=== PATIENT | female | born 1945 | race Caucasian/White ===

== ENCOUNTER 2019-02-19 16:00 | Observation (INO) | payer OTHER ==
--- NOTE | 2019-02-19 16:38 | PDOC ---
Documentation entered by Weston Chao SCRIBE, acting as scribe for Yamileth Munoz MD. Yamileth Munoz MD: This documentation has been prepared by the Jeremie malcolm Daniel, SCRIBE, under my direction and personally reviewed by me in its entirety. I confirm that the documentation accurately reflects all work, treatment, procedures, and medical decision making performed by me. History of Present Illness - General Chief Complaint: Rectal Bleed Stated Complaint: RECTAL BLEED History Source: Patient Exam Limitations: No Limitations - History of Present Illness Initial Comments: 02/19/19 16:32 The patient is a 73 year old female with a past medical history of vertigo and cardiac stents (3 years) here today for evaluation of bloody stool. The patient reports that she began noticed bright red blood yesterday when having bowel movements which she reports never happened before. She states that she only has blood when she she is having a bowel movement and notes that her stools are loose. Patient was seen by Dr. Connors who told her to come to the ER to be admitted and that she would get a colonoscopy tomorrow. She notes that she feels like lightheaded but attributes this to her vertigo. Patient denies headache. Denies fever, chills. Denies chest pain, shortness of breath. Denies nausea, vomiting, diarrhea, abdominal pain. Allergies: PCP: Dr. Tapia GI: Ed Connors Past History - Past Medical History Allergies/Adverse Reactions: Allergies Allergy/AdvReac Type Severity Reaction Status Date / Time Penicillins Allergy Severe Difficulty Verified 02/19/19 16:01 Breathing Home Medications: Ambulatory Orders Aspirin [ASA -] 81 mg PO DAILY 02/19/19 Clopidogrel Bisulfate [Plavix] 75 mg PO DAILY 02/19/19 Losartan/Hydrochlorothiazide [Hyzaar 50-12.5 Tablet] 1 each PO DAILY 02/19/19 Review of Systems - Review of Systems Able to Perform ROS?: Yes Comments:: 02/19/19 16:32 GENERAL/CONSTITUTIONAL: No fever or chills. No weakness. HEAD, EYES, EARS, NOSE AND THROAT: No change in vision. No ear pain or discharge. No sore throat. CARDIOVASCULAR: No chest pain or shortness of breath. RESPIRATORY: No cough, wheezing, or hemoptysis. GASTROINTESTINAL: +bloody bowel movements. No nausea, vomiting, diarrhea or constipation. GENITOURINARY: No dysuria, frequency, or change in urination. MUSCULOSKELETAL: No joint or muscle swelling or pain. No neck or back pain. SKIN: No rash NEUROLOGIC: No headache, vertigo, loss of consciousness, or change in strength/ sensation. ENDOCRINE: No increased thirst. No abnormal weight change. HEMATOLOGIC/LYMPHATIC: No anemia, easy bleeding, or history of blood clots. ALLERGIC/IMMUNOLOGIC: No hives or skin allergy. *Physical Exam - Physical Exam Comments: 02/19/19 16:33 GENERAL: Awake, alert, and fully oriented, in no acute distress HEAD: No signs of trauma EYES: PERRLA, EOMI, sclera anicteric, conjunctiva clear ENT: Auricles normal inspection, hearing grossly normal, nares patent. Moist mucosa NECK: Normal ROM, supple, no lymphadenopathy, JVD, or masses LUNGS: Breath sounds equal, clear to auscultation bilaterally. No wheezes, and no crackles HEART: Regular rate and rhythm, normal S1 and S2, no murmurs, rubs or gallops ABDOMEN: Soft, nontender, normoactive bowel sounds. No guarding, no rebound. No masses RECTAL: +mucous with blood in rectal vault. EXTREMITIES: Normal range of motion, no edema. No erythema or tenderness. DP/PT pulses 2+ and symmetric. Warm and well perfused. NEUROLOGICAL: Moves all extremities. Normal speech, normal gait SKIN: Warm and dry. Heart Score/ECG Review #1 General ECG Interpretation: Sinus Rhythm, Normal Rate, Normal Intervals, No acute ischemic changes (TWI AVL, no st elevation or depression left axis) Compared to previous ECG there are: Previous ECG unavail ED Treatment Course - LABORATORY CBC & Chemistry Diagram: 02/19/19 17:29 02/19/19 17:29 Medical Decision Making - Medical Decision Making 02/19/19 16:34 Dr. Connors paged at 4:29 PM, awaiting call back. 02/19/19 16:43 d/w dr connors, would like pt to get clears until midnight with go lytely prep. d/ w dr elam awaiting labs, and admission *DC/Admit/Observation/Transfer Diagnosis at time of Disposition: GI bleed - Discharge Dispostion Decision to Admit order: Yes - Referrals - Patient Instructions - Post Discharge Activity
[2019-02-19 16:45] VITALS: BMI 30.2
[2019-02-19] MEDS ORDERED: PEG 3350/NA SULF BICARB CL/KCL 4000 ML SOLN.RECON PO ONE (17:21)
[2019-02-19] MEDS ORDERED: SODIUM CHLORIDE 0.9% 1000 ML INFUS.BAG IV ONE (17:22)
[2019-02-19 17:40] LABS: BASO % 0.7 % (0-2.0); EOS % 0.6 % (0-4.5); HEMATOCRIT 40.2 % (32.4-45.2); LYMPH % 16.9 % (8-40); MCH 26.1 pg (25.7-33.7); MCHC 32.4 g/dl (32.0-36.0); MEAN CELL VOLUME 80.6 fl (80-96); MEAN PLT VOLUME 8.7 fl (7.5-11.1); MONO % 8.6 % (3.8-10.2); NEUT % 73.2 % (42.8-82.8); PLATELET COUNT 239 K/MM3 (134-434); RBC 4.98 M/mm3 (3.60-5.2); RDW 14.5 % (11.6-15.6); WHITE BLOOD COUNT 6.3 K/mm3 (4.0-10.8)
[2019-02-19 17:52] LABS: ACTIVATED PTT 27.8 SECONDS (25.2-36.5)
[2019-02-19 17:54] LABS: ALBUMIN 3.8 g/dl (3.4-5.0); BILIRUBIN,TOTAL 0.5 mg/dl (0.2-1); CALCIUM 9.7 mg/dl (8.5-10); CREATININE 0.8 mg/dl (0.55-1.3); POTASSIUM 3.8 mmol/L (3.5-5.1)
[2019-02-19 17:57] LABS: INR 1.27 (0.82-1.09); PROTHROMBIN TIME (PATIENT) 14.1 SEC (10.2-13.0)
--- NOTE | 2019-02-19 18:52 | HP ---
CHIEF COMPLAINT: Bloody stools PCP: Dr. Gamble Cardiology: Domenica Beyer GI: Dr. Kothari HISTORY OF PRESENT ILLNESS: 73 year-old female with a PMH significant for HTN, and CAD s/p stent on ASA and Plavix, current every day smoker. Patient presented to ED for evaluation of blood stool x 3 episodes. Yesterday patient had a loose bowel movement, brown- colored semi-formed stool, and she noticed blood in the toilet. It was not bright, more the color of "velvet cake." She had a second similar movement later in the day and again this morning. She went to see Dr. Kothari who referred her to the ED. Patient also complains of fatigue and lightheadedness. She denies abdominal pain. She denies dysuria, frequency, urgency, hematuria. She denies nausea, vomiting. She denies any previous episodes of rectal or GI bleeding. Last colonoscopy was about 8 years ago, a few polyps were removed. ER course was notable for: (1) Stool occult positive (2) Hgb 13.0 Recent Travel: [place], [place] PAST MEDICAL HISTORY: Hypertension Coronary artery disease Vertigo PAST SURGICAL HISTORY: Cardiac stent(s) Social History: Smoking: current every day Alcohol: no Drugs: no Family History: mother 67 breast cancer; father 62 liver cirrhosis; 1 brother alive CAD w/stents; 2 brothers a&w; 2 children a&w Allergies Penicillins Allergy (Severe, Verified 02/19/19 16:01) Difficulty Breathing HOME MEDICATIONS: Home Medications Medication Instructions Recorded Aspirin [ASA -] 81 mg PO DAILY 02/19/19 Clopidogrel Bisulfate [Plavix] 75 mg PO DAILY 02/19/19 Losartan/Hydrochlorothiazide 1 each PO DAILY 02/19/19 [Hyzaar 50-12.5 Tablet] REVIEW OF SYSTEMS CONSTITUTIONAL: +fatigue Absent: fever, chills, diaphoresis, generalized weakness, malaise, loss of appetite, weight change HEENT: Absent: rhinorrhea, nasal congestion, throat pain, throat swelling, difficulty swallowing, mouth swelling, ear pain, eye pain, visual changes CARDIOVASCULAR: Absent: chest pain, syncope, palpitations, irregular heart rate, lightheadedness , peripheral edema RESPIRATORY: Absent: cough, shortness of breath, dyspnea with exertion, orthopnea, wheezing, stridor, hemoptysis GASTROINTESTINAL: +rectal bleeding Absent: abdominal pain, abdominal distension, nausea, vomiting, diarrhea, constipation, melena, hematochezia GENITOURINARY: Absent: dysuria, frequency, urgency, hesitancy, hematuria, flank pain, genital pain MUSCULOSKELETAL: Absent: myalgia, arthralgia, joint swelling, back pain, neck pain SKIN: Absent: rash, itching, pallor HEMATOLOGIC/IMMUNOLOGIC: Absent: easy bleeding, easy bruising, lymphadenopathy, frequent infections ENDOCRINE: Absent: unexplained weight gain, unexplained weight loss, heat intolerance, cold intolerance NEUROLOGIC: Absent: headache, focal weakness or paresthesias, dizziness, unsteady gait, seizure, mental status changes, bladder or bowel incontinence PSYCHIATRIC: Absent: anxiety, depression, suicidal or homicidal ideation, hallucinations. PHYSICAL EXAMINATION Vital Signs - 24 hr 02/19/19 02/19/19 16:01 18:04 Temperature 99.5 F Pulse Rate 73 Pulse Rate [ 74 Right] Respiratory 20 20 Rate Blood Pressure 150/75 Blood Pressure 162/84 [Left Arm] O2 Sat by Pulse 96 97 Oximetry (%) GENERAL: Awake, alert, and fully oriented, in no acute distress. HEAD: Normal with no signs of trauma. EYES: Pupils equal, round and reactive to light, extraocular movements intact, sclera anicteric, conjunctiva clear. No lid lag. EARS, NOSE, THROAT: Ears normal, nares patent, oropharynx clear without exudates. Moist mucous membranes. NECK: Normal range of motion, supple without lymphadenopathy, JVD, or masses. LUNGS: Breath sounds equal, clear to auscultation bilaterally. No wheezes, and no crackles. No accessory muscle use. HEART: Regular rate and rhythm, normal S1 and S2 without murmur, rub or gallop. ABDOMEN: Soft, +RLQ tenderness, bowel sounds only in the RLQ; no guarding, no rebound tenderness UPPER EXTREMITIES: 2+ pulses, warm, well-perfused. No cyanosis. No clubbing. No peripheral edema. LOWER EXTREMITIES: 2+ pulses, warm, well-perfused. No calf tenderness. No peripheral edema. NEUROLOGICAL: Cranial nerves II-XII intact. Normal speech. Laboratory Results - last 24 hr 02/19/19 02/19/19 02/19/19 16:16 17:29 17:29 WBC 6.3 RBC 4.98 Hgb 13.0 Hct 40.2 MCV 80.6 MCH 26.1 MCHC 32.4 RDW 14.5 Plt Count 239 MPV 8.7 Absolute Neuts (auto) 4.7 Neutrophils % 73.2 Lymphocytes % 16.9 Monocytes % 8.6 Eosinophils % 0.6 Basophils % 0.7 PT with INR 14.1 H INR 1.27 H PTT (Actin FS) 27.8 Sodium Potassium Chloride Carbon Dioxide Anion Gap BUN Creatinine Est GFR (CKD-EPI)AfAm Est GFR (CKD-EPI)NonAf Random Glucose Calcium Total Bilirubin AST ALT Alkaline Phosphatase Total Protein Albumin Urine Color Urine Appearance Urine pH Urine Protein Urine Glucose (UA) Urine Ketones Urine Blood Urine Nitrite Urine Bilirubin Urine Urobilinogen Ur Leukocyte Esterase Stool Occult Blood Positive 02/19/19 02/19/19 17:29 17:53 WBC RBC Hgb Hct MCV MCH MCHC RDW Plt Count MPV Absolute Neuts (auto) Neutrophils % Lymphocytes % Monocytes % Eosinophils % Basophils % PT with INR INR PTT (Actin FS) Sodium 136 Potassium 3.8 Chloride 102 Carbon Dioxide 26 Anion Gap 8 BUN 15 Creatinine 0.8 Est GFR (CKD-EPI)AfAm 84.18 Est GFR (CKD-EPI)NonAf 72.63 Random Glucose 89 Calcium 9.7 Total Bilirubin 0.5 AST 16 ALT 14 Alkaline Phosphatase 88 Total Protein 7.0 Albumin 3.8 Urine Color Yellow Urine Appearance Clear Urine pH 5.0 Urine Protein Negative Urine Glucose (UA) Negative Urine Ketones Negative Urine Blood Trace-intact Urine Nitrite Positive H Urine Bilirubin Negative Urine Urobilinogen 0.2 Ur Leukocyte Esterase 1+ Stool Occult Blood ASSESSMENT/PLAN 73 year-old female with a PMH significant for HTN, and CAD s/p stent on ASA and Plavix, admitted for lower GI bleed. Lower GI bleed --RLQ tenderness on exam; no fever, no leukocytosis, no nausea, no vomiting --occult stool positive --h/h stable --type and screen done --IV fluids --protonix --cbc q4h --Go-Lytely tonight --plan is for colonoscopy tomorrow with Dr. Kothari Coronary artery disease s/p stent x 3 years ago --hold ASA and Plavix --will reach out to teacher [employer] Dr. Tapia about anti-platelet therapy going forward Hypertension --continue losartan/HCTZ FEN Fluids: NS@125mL/hr Electrolytes: replete as indicated Nutrition: NPO after midnight DVT prophylaxis: SCDs, oob, ambulation Dispo: continues to require observation. Full code. Visit type - Emergency Visit Emergency Visit: Yes ED Registration Date: 02/19/19 Care time: The patient presented to the Emergency Department on the above date and was hospitalized for further evaluation of their emergent condition. - New Patient This patient is new to me today: Yes Date on this admission: 02/19/19 - Critical Care Critical Care patient: No
[2019-02-19] MEDS ORDERED: SODIUM CHLORIDE 1,000 ML IV SCH (20:00)
[2019-02-19] MEDS: PANTOPRAZOLE SODIUM 40 MG VIAL IVPUSH SCH (20:16)
[2019-02-19] MEDS ORDERED: INSULIN SLIDING SCALE (NOVOLOG) 1 VIAL SQ SCH (22:00)
[2019-02-19 22:07] LABS: EPITHELIAL CELLS FEW /hpf
[2019-02-20 08:47] LABS: ALBUMIN 3.2 g/dl (3.4-5.0); BILIRUBIN,TOTAL 0.7 mg/dl (0.2-1); CALCIUM 9.1 mg/dl (8.5-10); CREATININE 0.8 mg/dl (0.55-1.3); MAGNESIUM 1.6 mg/dL (1.8-2.4); POTASSIUM 3.8 mmol/L (3.5-5.1); TOT PROT 5.8 g/dl (6.4-8.2)
[2019-02-20] MEDS: PANTOPRAZOLE SODIUM 40 MG VIAL IVPUSH SCH (09:20)
--- NOTE | 2019-02-20 09:34 | PN ---
Progress Note (short form) - Note Progress Note: Patient seen and consult dictated. For colonoscopy this am with recommendations to follow.
[2019-02-20] MEDS ORDERED: LOSARTAN 50MG/HCTZ 12.5MG 1 TAB (FP) PO SCH (10:00)
--- NOTE | 2019-02-20 10:04 | PN ---
Progress Note (short form) - Note Progress Note: Colonoscopy performed to cecum with report in chart. No bleeding seen. +sigmoid diverticulosis ?etiology of recent bleed? Rec: advance diet d/c home when stable hold ASA, Plavix for 1 week then ?restart if no further bleeding
--- NOTE | 2019-02-20 10:28 | CONS ---
DATE OF CONSULTATION: 02/20/2019 REASON FOR CONSULTATION: I was asked to evaluate this 73-year-old female admitted with lower GI bleeding. HISTORY OF PRESENT ILLNESS: The patient has a history of coronary artery disease, hypertension, and history of colonic polyps in the past. She was seen by me in the office yesterday with a 1-day history of several episodes of dark red blood, had mixed with the stool. The patient denied any associated fever, chills, pain, or cramps. The patient had been on Plavix and aspirin and was sent to the emergency room for evaluation and admission. In the emergency room, she was noted to have a normal white count of 6.3, hemoglobin 13, with hematocrit of 40.2, and an INR of 1.27. Her chemistries were unremarkable. The patient was admitted to the hospital and has remained relatively stable. PHYSICAL EXAMINATION: General: She is a well-developed, well-nourished female. HEENT: [place] conjunctiva. Lungs: Clear. Cardiac: Regular rate and rhythm. Abdomen: Soft. Normoactive bowel sounds and slight discomfort in the right lower quadrant. LABORATORY TESTS: As above. IMPRESSION: Patient is a 73-year-old female admitted with probable lower gastrointestinal bleed. On aspirin and Plavix. Differential diagnosis would include ischemia, arteriovenous malformations, polyps, colitis, and less likely a neoplasm. Patient does have a history of colonic polyps which could also cause bleeding. Will arrange for a colonoscopy with recommendations to follow. ALBERTINA COHEN M.D. [id number]
[2019-02-20 11:37] VITALS: BP 136/61; PULSE 67; TEMP 98.9
[2019-02-20] MEDS ORDERED: MAGNESIUM OXIDE 400 MG TABLET (FP) PO ONE (12:00)
--- NOTE | 2019-02-20 12:13 | DS ---
Physical Exam: SUBJECTIVE: Patient seen and examined OBJECTIVE: Vital Signs Period Temp Pulse Resp BP Sys/Hein Pulse Ox Last 24 Hr 98 F-99.5 F 64-74 17-20 132-162/52-84 94-97 PHYSICAL EXAM GENERAL: The patient is awake, alert, and fully oriented, in no acute distress. HEAD: Normal with no signs of trauma. EYES: PERRL, extraocular movements intact, sclera anicteric, conjunctiva clear. ENT: Ears normal, nares patent, oropharynx clear without exudates, moist mucous membranes. NECK: Trachea midline, full range of motion, supple. LUNGS: Breath sounds equal, clear to auscultation bilaterally, no wheezes, no crackles, no accessory muscle use. HEART: Regular rate and rhythm, S1, S2 without murmur, rub or gallop. ABDOMEN: Soft, nontender, nondistended, normoactive bowel sounds, no guarding, no rebound, no hepatosplenomegaly, no masses. EXTREMITIES: 2+ pulses, warm, well-perfused, no edema. NEUROLOGICAL: Cranial nerves II through XII grossly intact. Normal speech, gait not observed. PSYCH: Normal mood, normal affect. SKIN: Warm, dry, normal turgor, no rashes or lesions noted. LABS Laboratory Results - last 24 hr 02/19/19 02/19/19 02/19/19 07:10 16:16 17:29 WBC 6.3 RBC 4.98 Hgb 13.0 Hct 40.2 MCV 80.6 MCH 26.1 MCHC 32.4 RDW 14.5 Plt Count 239 MPV 8.7 Absolute Neuts (auto) 4.7 Neutrophils % 73.2 Lymphocytes % 16.9 Monocytes % 8.6 Eosinophils % 0.6 Basophils % 0.7 PT with INR INR PTT (Actin FS) Sodium Potassium Chloride Carbon Dioxide Anion Gap BUN Creatinine Est GFR (CKD-EPI)AfAm Est GFR (CKD-EPI)NonAf Random Glucose Calcium Magnesium Total Bilirubin AST ALT Alkaline Phosphatase Total Protein Albumin Urine Color Urine Appearance Urine pH Urine Protein Urine Glucose (UA) Urine Ketones Urine Blood Urine Nitrite Urine Bilirubin Urine Urobilinogen Ur Leukocyte Esterase Urine RBC Urine WBC Ur Transition Epith Cell Urine Bacteria Stool Occult Blood Positive Blood Type A POSITIVE Antibody Screen 02/19/19 02/19/19 02/19/19 17:29 17:29 17:29 WBC RBC Hgb Hct MCV MCH MCHC RDW Plt Count MPV Absolute Neuts (auto) Neutrophils % Lymphocytes % Monocytes % Eosinophils % Basophils % PT with INR 14.1 H INR 1.27 H PTT (Actin FS) 27.8 Sodium 136 Potassium 3.8 Chloride 102 Carbon Dioxide 26 Anion Gap 8 BUN 15 Creatinine 0.8 Est GFR (CKD-EPI)AfAm 84.18 Est GFR (CKD-EPI)NonAf 72.63 Random Glucose 89 Calcium 9.7 Magnesium Total Bilirubin 0.5 AST 16 ALT 14 Alkaline Phosphatase 88 Total Protein 7.0 Albumin 3.8 Urine Color Urine Appearance Urine pH Urine Protein Urine Glucose (UA) Urine Ketones Urine Blood Urine Nitrite Urine Bilirubin Urine Urobilinogen Ur Leukocyte Esterase Urine RBC Urine WBC Ur Transition Epith Cell Urine Bacteria Stool Occult Blood Blood Type A POSITIVE Antibody Screen Negative 02/19/19 02/20/19 17:53 07:10 WBC RBC Hgb Hct MCV MCH MCHC RDW Plt Count MPV Absolute Neuts (auto) Neutrophils % Lymphocytes % Monocytes % Eosinophils % Basophils % PT with INR INR PTT (Actin FS) Sodium 140 Potassium 3.8 Chloride 106 Carbon Dioxide 26 Anion Gap 8 BUN 11 Creatinine 0.8 Est GFR (CKD-EPI)AfAm 84.18 Est GFR (CKD-EPI)NonAf 72.63 Random Glucose 89 Calcium 9.1 Magnesium 1.6 L Total Bilirubin 0.7 AST 14 L ALT 13 Alkaline Phosphatase 77 D Total Protein 5.8 L Albumin 3.2 L Urine Color Yellow Urine Appearance Clear Urine pH 5.0 Urine Protein Negative Urine Glucose (UA) Negative Urine Ketones Negative Urine Blood Trace-intact Urine Nitrite Positive H Urine Bilirubin Negative Urine Urobilinogen 0.2 Ur Leukocyte Esterase 1+ Urine RBC 2-5 Urine WBC 20-30 Ur Transition Epith Cell Few Urine Bacteria Few Stool Occult Blood Blood Type Antibody Screen HOSPITAL COURSE: Date of Admission:02/19/19 Date of Discharge: 02/20/19 Pre hospital course 73 year-old female with a PMH significant for HTN, CAD s/p stent on ASA and Plavix, current every day smoker. Patient presented to ED for evaluation of blood stool x 3 episodes. Yesterday patient had a loose bowel movement, brown- colored semi-formed stool, and she noticed blood in the toilet. It was not bright, more the color of "velvet cake." She had a second similar movement later in the day and again this morning. She went to see Dr. Kothari who referred her to the ED. Patient also complains of fatigue and lightheadedness. She denies abdominal pain. She denies dysuria, frequency, urgency, hematuria. She denies nausea, vomiting. She denies any previous episodes of rectal or GI bleeding. Last colonoscopy was about 8 years ago, a few polyps were removed. ER course (1) Stool occult positive (2) Hgb 13.0 Subsequent hospital course 73 year-old female with a PMH significant for HTN, and CAD s/p stent on ASA and Plavix, admitted for lower GI bleed. Lower GI bleed --02/[address] Kothari: no bleeding seen; +sigmoid diverticulosis which is possible source of bleeding --hold ASA and Plavix x 1 week, follow up with cardiology Dr. Tapia /GI Dr. Kothari as outpatient Coronary artery disease s/p stent x 3 years ago --ASA and Plavix held Hypertension --continued losartan/HCTZ Minutes to complete discharge: 35 Discharge Summary Reason For Visit: GASTROINTESTINAL HEMORRAGE Current Active Problems GI bleed (Acute) Condition: Improved - Instructions Diet, Activity, Other Instructions: Do NOT take aspirin or Plavix for 7 days following today's procedure. If you have had no further bleeding episodes, you can resume these medications. If you do have further bleeding episodes call Dr. Kothari right away or come to the emergency department. Referrals: Ed Kothari MD [Staff Physician] - Disposition: HOME - Home Medications Comprehensive Discharge Medication List: Ambulatory Orders Losartan/Hydrochlorothiazide [Hyzaar 50-12.5 Tablet] 1 each PO DAILY 02/19/19 This patient is new to me today: No Emergency Visit: Yes ED Registration Date: 02/19/19 Care time: The patient presented to the Emergency Department on the above date and was hospitalized for further evaluation of their emergent condition. Critical Care patient: No - Discharge Referral Referred to [facility] Med P.C.: No
--- NOTE | 2019-02-20 14:31 | EKG ---
Test Reason : Blood Pressure : / mmHG Vent. Rate : 073 BPM Atrial Rate : 073 BPM P-R Int : 212 ms QRS Dur : 114 ms QT Int : 400 ms P-R-T Axes : 000 -49 090 degrees QTc Int : 440 ms SINUS RHYTHM WITH 1ST DEGREE A-V BLOCK LEFT ANTERIOR FASCICULAR BLOCK LEFT VENTRICULAR HYPERTROPHY WITH REPOLARIZATION ABNORMALITY CANNOT RULE OUT SEPTAL INFARCT , AGE UNDETERMINED ABNORMAL ECG NO PREVIOUS ECGS AVAILABLE Confirmed by MARLEN TATUM, LAURA ([id number]) on 02/20/2019 2:30:33 PM Referred By: MD CRUZ Confirmed By:LAURA GEE MD
== END 2019-02-20 12:20 | disposition home or self-care (01) ==
LOC: FER 16:00 → FM/S 16:38
PROVIDERS: ADMIT Internal Medicine; ATTEND Nurse Practitioner Acute Care
PROC: 0DJD8ZZ Inspection of Lower Intestinal Tract, Via Natural or Artificial Opening Endoscopic (ICD-10-PCS; principal; 2019-02-19)
PROC: 3E033GC Introduction of Other Therapeutic Substance into Peripheral Vein, Percutaneous Approach (ICD-10-PCS; 2019-02-19)
PROC: 3E0337Z Introduction of Electrolytic and Water Balance Substance into Peripheral Vein, Percutaneous Approach (ICD-10-PCS; 2019-02-19)
DX: K92.2 Gastrointestinal hemorrhage, unspecified (principal); I10 Essential (primary) hypertension; I25.10 Atherosclerotic heart disease of native coronary artery without angina pectoris; F17.210 Nicotine dependence, cigarettes, uncomplicated; Z79.01 Long term (current) use of anticoagulants; Z79.82 Long term (current) use of aspirin; Z88.0 Allergy status to penicillin; Z95.5 Presence of coronary angioplasty implant and graft; K57.30 Diverticulosis of large intestine without perforation or abscess without bleeding
CPT/HCPCS: 36415; 71045-TC-FY; 80053; 81003; 81015; 82272; 83735; 85025; 85610; 85730; 86850; 86900; 86901; 93005; 96374; 99283-25; G0378; J7030